=== PATIENT | male | born 1940 | race African-American/Black ===

== ENCOUNTER 2019-01-08 05:53 | Observation (INO) ==
[2019-01-08] MEDS ORDERED: Metoprolol Tartrate 25 MG Tablet PO ONE (06:26)
[2019-01-08] MEDS ORDERED: Chlorhexidine Gluconate 2% 1 Pack (2 Cloths) TOPICAL ONE (06:26)
[2019-01-08] MEDS ORDERED: Heparin 10,000 UNITS/10 ML Vial (for IV use) ONE (06:31)
[2019-01-08] MEDS ORDERED: Protamine Sulfate Inj 50 MG/5 ML Vial ONE (06:31)
[2019-01-08] MEDS ORDERED: Heparin/NS PF Inj 500 ML ONE (06:32)
[2019-01-08] MEDS ORDERED: Thrombin Topical Soln 20,000 UNIT Vial TOPICAL ONE (06:32)
[2019-01-08] MEDS ORDERED: Bupivacaine PF 0.5% Inj 10 ML Vial ONE (06:32)
[2019-01-08] MEDS ORDERED: Heparin 2,000 UNITS/2 ML Vial (for IV use) IV.FLUSH PRN (06:46)
[2019-01-08] MEDS ORDERED: Sodium Chlor 0.9% Inj 500 ML IV.SIG SCH (07:00)
--- NOTE | 2019-01-08 07:08 | P.HPVS ---
History of Present Illness Chief Complaint: ESRD, need for HD access History of Present Illness: 78 yo male with ESRD on HD TTS via R chest catheter. Had R BB AVF placed on that is mature by exam and ultrasound. Presents for planned second stage. No changes in health that would preclude OR - Inpatient Certification If this patient has been admitted as an Inpatient: I certify that the inpatient services were ordered in accordance with Medicare regulations governing the order. This includes certification that hospital inpatient services are reasonable and necessary and in the case of services not specified as inpatient-only under 42 CFR 419.22(n), that they are appropriately provided as inpatient services in accordance to with the 2-midnight benchmark under 43 CFR 412.3(e) Estimated Total Length of Stay (Days): 2 Plans for Post Hospital Care: Home Review of Systems All other systems reviewed negative except as stated in HPI Constitutional: Reports chills PMFSH - History History Provided By: Patient - Medical History Medical History: Medical History (Last Reviewed 01/08/19 @ 07:06 by Giovany Lynne MD) AV fistula COPD (chronic obstructive pulmonary disease) Eye disease GERD (gastroesophageal reflux disease) HTN (hypertension) High cholesterol PAD (peripheral artery disease) Poor historian Prostate enlargement Vascular dialysis catheter in place Wears glasses Wheelchair bound - Surgical History Surgical History: Surgical History (Last Reviewed 01/08/19 @ 07:06 by Giovany Lynne MD) Hx of abdominal surgery Hx of vascular surgery S/P BKA (below knee amputation) bilateral - Tobacco History Second Hand Smoke Exposure: No Tobacco Use In Past 30 Days: No Smoking Status: Former smoker Tobacco Type: Cigarettes - Alcohol History How Often Do You Have a Drink Containing Alcohol: Never - Substance Use History Substance History: No History of Abuse Medications and Allergies Active Medications: Active Medications Heparin Sodium (Porcine) (Heparin Inj) 0 units IV.FLUSH WITH DIALYSIS PRN PRN Reason: Flush each lumen Sodium Chloride (Ns Inj) 500 mls @ 30 mls/hr IV.SIG .Q10H ISIDRO Lactated Ringer's (Lr 1000 Ml Inj) 1,000 mls @ 30 mls/hr IV.SIG .Q24H ISIDRO Stop: 01/09/19 06:29 Sodium Chloride (Ns Flush) 0 ml IV.FLUSH PRN PRN PRN Reason: FLUSH AFTER USING IV ACCESS Allergies Allergy/AdvReac Type Severity Reaction Status Date / Time No Known Allergies Allergy Verified 01/08/19 06:58 Home Medications Medication Instructions Recorded Confirmed Type amlodipine 10 mg PO DAILY 08/14/18 01/07/19 History calcium carbonate-vitamin D3 1 tab PO DAILY 08/14/18 01/07/19 History [Os-Saturnino 500 + D3] folic acid 1 mg PO HS 08/14/18 01/07/19 History metoprolol tartrate 12.5 mg PO BID 08/14/18 01/07/19 History pantoprazole 40 mg PO DAILY 08/14/18 01/07/19 History albuterol sulfate 2.5 mg INHALATION Q4H PRN 09/02/18 01/07/19 History atorvastatin 80 mg PO HS 09/02/18 01/07/19 History ferrous sulfate [Iron (ferrous 325 mg PO DAILY 09/02/18 01/07/19 History sulfate)] fluticasone-salmeterol [Advair 1 puff INHALATION BID 09/02/18 01/07/19 History Diskus] polymyxin B sulf-trimethoprim 1 drp EACH EYE DAILY PRN 09/02/18 01/07/19 History Physical Exam Neuro: alert, no distress HEENT: NC/AT Neck: no JVD Heart: reg rate Lungs: clear B Vascular: R UE incision c/d/i + thrill hand ok. L UE less edematous and incision ok pending Caprini VTE Risk Assessment Caprini VTE Risk Assessment: No/Low Risk (score <= 1) (intraop heparin) Caprini Risk Assessment Model: Point Value = 1 Point Value = 2 Point Value = 3 Point Value = 5 Age 41-60 Minor surgery BMI > 25 kg/m2 Swollen legs Varicose veins or History of unexplained or recurrent spontaneous Oral contraceptives or hormone replacement Sepsis (< 1 month) Serious lung disease, including pneumonia (< 1 month) Abnormal pulmonary function Acute myocardial infarction Congestive heart failure (< 1 month) History of inflammatory bowel disease Medical patient at bed rest Age 61-74 Arthroscopic surgery Major open surgery (> 45 min) Laparoscopic surgery (> 45 min) Malignancy Confined to bed (> 72 hours) Immobilizing plaster cast Central venous access Age >= 75 History of VTE Family history of VTE Factor V Leiden Prothrombin [id number] Lupus anticoagulant Anticardiolipin antibodies Elevated serum homocysteine Heparin-induced thrombocytopenia Other congenital or acquired thrombophilia Stroke (< 1 month) Elective arthroplasty Hip, pelvis, or leg fracture Acute spinal cord injury (< 1 month) Prophylaxis Regimen: Total Risk Factor Score Risk Level Prophylaxis Regimen 0-1 Low Early ambulation 2 Moderate Order ONE of the following: *Sequential Compression Device (SCD) *Heparin 5000 units SQ BID 3-4 Higher Order ONE of the following medications: *Heparin 5000 units SQ TID *Enoxaparin/Lovenox 40 mg SQ daily (WT < 150 kg, CrCl > 30 mL/min) *Enoxaparin/Lovenox 30 mg SQ daily (WT < 150 kg, CrCl > 10-29 mL/min) *Enoxaparin/Lovenox 30 mg SQ BID (WT < 150 kg, CrCl > 30 mL/min) AND/OR *Sequential Compression Device (SCD) 5 or more Highest Order ONE of the following medications: *Heparin 5000 units SQ TID (Preferred with Epidurals) *Enoxaparin/Lovenox 40 mg SQ daily (WT < 150 kg, CrCl > 30 mL/min) *Enoxaparin/Lovenox 30 mg SQ daily (WT < 150 kg, CrCl > 10-29 mL/min) *Enoxaparin/Lovenox 30 mg SQ BID (WT < 150 kg, CrCl > 30 mL/min) AND *Sequential Compression Device (SCD) Assessment and Plan - Assessment (1) ESRD (end stage renal disease) on dialysis Code(s): N18.6 - End stage renal disease; Z99.2 - Dependence on renal dialysis Status: Acute - Plan RIGHT arm BB AVF, ready for second stage. To OR. Operative site marked. PACU and CPCU post-op : [phone]
[2019-01-08 07:20] LABS: Baso % (Auto) 0.6 % (0.0-2.0); Eos # (Auto) 0.3 th/mm3 (0.0-0.4); Eos % (Auto) 4.9 % (0.0-4.0); Hemoglobin 10.6 gm/dL (13.0-17.0); Lymph # (Auto) 1.3 th/mm3 (1.0-4.8); Lymph % (Auto) 21.9 % (9.0-44.0); Mean Corpuscular HGB Conc 33.1 % (32.0-36.0); Mean Corpuscular Hemoglobin 31.2 pg (27.0-34.0); Mean Corpuscular Volume 94.3 fL (80.0-100.0); Mean Platelet Volume 9.1 fL (7.0-11.0); Mono # (Auto) 0.7 th/mm3 (0.0-0.9); Neut # (Auto) 3.7 th/mm3 (1.8-7.7); Neut % (Auto) 60.6 % (16.0-70.0); Platelet Count 151 th/mm3 (150-450); Red Cell Distribution Width 17.2 % (11.6-17.2); White Blood Count 6.1 th/mm3 (4.0-11.0)
[2019-01-08 07:26] LABS: Activated Partial Thrombo Time 29.9 sec (23.4-31.7); INR 1.1 Ratio; Prothrombin Time 11.5 sec (9.8-11.6)
[2019-01-08] MEDS ORDERED: Famotidine PF Inj 20 MG/2 ML Vial ONE (07:30)
[2019-01-08 07:31] LABS: Calcium 7.8 mg/dL (8.5-10.1); Carbon Dioxide 31.1 meq/L (21.0-32.0); Potassium 4.4 meq/L (3.5-5.1)
[2019-01-08] MEDS ORDERED: Phenylephrine/NS 1000 MCG/10ML Syringe IV.PUSH ONE (07:45)
[2019-01-08] MEDS ORDERED: Sodium Chlor 0.9% Inj 250 ML IV.CONT ONE (07:45)
[2019-01-08] MEDS ORDERED: Lidocaine PF 1% Inj 5 ML Syringe OTHER ONE (07:45)
[2019-01-08] MEDS ORDERED: Glycopyrrolate Inj 1 MG/5 ML Syringe IV.PUSH ONE (07:45)
[2019-01-08] MEDS ORDERED: Bisacodyl 10 MG Supp RECTAL PRN (09:17)
--- NOTE | 2019-01-08 09:17 | P.OP ---
- Preoperative Diagnosis (1) ESRD (end stage renal disease) on dialysis - Postoperative Diagnosis (1) ESRD (end stage renal disease) on dialysis Date of procedure: 01/08/19 Procedure: R UE access revision (transposition of brachiobasilic AVF) Implants: none Anesthesia: GETA Surgeon: Giovany Lynne MD Drencher: Giovany Enriquez Estimated blood loss (mL): 25 IV fluids (mL): 550 Pathology: none sent Operation and Findings: decent sized vein + thrill after AVF + Doppler signals in wrist
[2019-01-08] MEDS ORDERED: Polymyxin/Trimethop Opth Drops 10 ML Bottle EACH EYE PRN (09:20)
[2019-01-08] MEDS ORDERED: fentaNYL Citrate Inj 100 MCG/2 ML Ampul ONE (10:07)
--- NOTE | 2019-01-08 11:02 | MP ---
cc: Giovany Lynne MD DATE OF OPERATION: 01/08/2019 PREOPERATIVE DIAGNOSIS: Endstage renal disease, need for dialysis access. POSTOPERATIVE DIAGNOSIS: Endstage renal disease, need for dialysis access. PROCEDURE PERFORMED: Right brachiobasilic arteriovenous fistula transposition. ATTENDING SURGEON: Giovany Lynne MD. ANESTHESIA: LMA. MEDICAL INSURANCE COLLECTOR SURGEON: Giovany Enriquez. INDICATIONS FOR PROCEDURE: Mr. Finnegan is an 78-year-old gentleman with bilateral below-knee amputations and a failed left arm access. He had a right first stage brachiobasilic fistula on 11/06 and is brought to the operating room for a planned second stage. Intraoperatively, it was found the vein to be marginal, but had a reasonable thrill. DESCRIPTION OF PROCEDURE: Informed consent was obtained from the patient, he was taken to the operating room and placed supine on the operating table. Appropriate timeout was taken to ensure the patient's identity, operative site, and planned procedure. The administration of 1 gram of vancomycin was initiated prior to skin incision and will be discontinued after single preoperative dose. Vancomycin was chosen because of the patient's end-stage renal disease. Everyone in the room agreed with the timeout and we proceeded. His right arm was prepped and draped. Incision made along the medial aspect of the upper arm, carried down through subcutaneous tissue with electrocautery. Basilic vein was identified, dissected free, and side branches were ligated with 3-0 silk. The vein was marked for orientation and clamped distally. The distal end was transected and oversewn with 3-0 silk. The vein was then transposed, taking caution not to twist it. The brachial artery was identified on the medial aspect of the incision, dissected free for several centimeters. The patient was systemically heparinized with 3000 units of IV heparin. Proximal and distal control of the brachial artery obtained with profunda clamps and a longitudinal arteriotomy was made with an 11 blade, extended with [place] scissors. The vein was cut to appropriate length, spatulated, and sewn end-to-side with running 6-0 Prolene suture. At the completion, it was flushed and noted to be hemostatic. There was a nice thrill in the fistula and Doppler signal in the wrist. The heparin was reversed with protamine. The wound was closed with 2-0 Polysorb, 3-0 Polysorb, and 4-0 Monocryl. Sponge and needle counts were correct at the end of the case. I was present and scrubbed for the entire procedure. MD JIM Matson/lorraine/trudi , 09:38 AM , 09:45 AM [email or web address]
[2019-01-08] MEDS ORDERED: Glycopyrrolate 0.2 MG/ML Vial ONE (11:25)
[2019-01-08] MEDS ORDERED: Sod Chloride 0.9% Inj 1,000 ML OTHER PRN ×2 (15:15)
[2019-01-08] MEDS ORDERED: Albumin Human 25% Inj 100 ML IV.SIG PRN (15:15)
[2019-01-08] MEDS ORDERED: Acetaminophen 325 MG Tablet PO PRN (15:15)
[2019-01-08] MEDS ORDERED: Gelatin 12 MM/7 MM Topical Foam TOPICAL PRN (15:15)
[2019-01-08] MEDS ORDERED: Heparin 10,000 UNITS/10 ML Vial (for IV use) OTHER PRN ×2 (15:15)
[2019-01-08] MEDS ORDERED: Sod Chloride 0.9% Inj 1,000 ML IV.CONT PRN (15:15)
--- NOTE | 2019-01-08 15:28 | P.CONNP ---
<Pollo Berger - Last Filed: 01/08/19 15:28> History of Present Illness Reason for Consult: ESRD on HD Primary Care Provider: No Primary Care Physician History of Present Illness: Patient is an 78 year old male who came to [facility] for a right upper extremity access revision with Dr. Lynne. Patient had a right upper extremity fistula placed (1st stage) with Dr. Lynne on 11/06/18. Patient had a failed left upper extremity access that was done 08/14/2018. Patient has a PMH of ESRD on dialysis, COPD, HTN, PAD, s/p bilateral BKA. Patient stated he normally gets dialyzed TTS at [facility] in [place]. Patient denied any complaints. Patient is a former tobacco smoker. Review of Systems All other systems reviewed negative except as stated in HPI [facility] - History History Provided By: Patient - Medical History Medical History: Medical History (Last Reviewed 01/08/19 @ 07:06 by Giovany Lynne MD) AV fistula COPD (chronic obstructive pulmonary disease) Eye disease GERD (gastroesophageal reflux disease) HTN (hypertension) High cholesterol PAD (peripheral artery disease) Poor historian Prostate enlargement Vascular dialysis catheter in place Wears glasses Wheelchair bound - Surgical History Surgical History: Surgical History (Last Reviewed 01/08/19 @ 07:06 by Giovany Lynne MD) Hx of abdominal surgery Hx of vascular surgery S/P BKA (below knee amputation) bilateral - Tobacco History Second Hand Smoke Exposure: No Tobacco Use In Past 30 Days: No Smoking Status: Former smoker Tobacco Type: Cigarettes - Alcohol History How Often Do You Have a Drink Containing Alcohol: Never - Substance Use History Substance History: No History of Abuse - Travel History Recent Travel in the [place] Within the Last 8 Weeks: No Recent Travel Out of the Country Within the Last 8 Weeks: No Medications and Allergies Allergies Allergy/AdvReac Type Severity Reaction Status Date / Time No Known Allergies Allergy Verified 01/08/19 06:58 Home Medications Medication Instructions Recorded Confirmed Type amlodipine 10 mg PO DAILY 08/14/18 01/08/19 History calcium carbonate-vitamin D3 1 tab PO DAILY 08/14/18 01/08/19 History [Os-Saturnino 500 + D3] folic acid 1 mg PO HS 08/14/18 01/08/19 History metoprolol tartrate 12.5 mg PO BID 08/14/18 01/08/19 History pantoprazole 40 mg PO DAILY 08/14/18 01/08/19 History albuterol sulfate 2.5 mg INHALATION Q4H PRN 09/02/18 01/08/19 History atorvastatin 80 mg PO HS 09/02/18 01/08/19 History ferrous sulfate [Iron (ferrous 325 mg PO DAILY 09/02/18 01/08/19 History sulfate)] fluticasone-salmeterol [Advair 1 puff INHALATION BID 09/02/18 01/08/19 History Diskus] polymyxin B sulf-trimethoprim 1 drp EACH EYE DAILY PRN 09/02/18 01/08/19 History Active Medications: Active Medications Acetaminophen (Tylenol) 650 mg PO UNSCH PRN PRN Reason: SEE LABEL COMMENTS Albuterol (Albuterol Neb (Prn)) 2.5 mg INH Q4HR NEB PRN PRN Reason: SHORTNESS OF BREATH/WHEEZING Amlodipine Besylate (Norvasc) 10 mg PO DAILY ISIDRO Atorvastatin Calcium (Lipitor) 80 mg PO HS ISIDRO Bisacodyl (Dulcolax Supp) 10 mg RECTAL DAILY PRN PRN Reason: SEVERE CONSITIPATION Budesonide/Formoterol Fumarate (Symbicort 80/4.5 Mcg Inh) 2 puff INH BID ISIDRO Calcium/Vitamin D (Oscal With D 250/125 Mg) 2 tab PO DAILY ISIDRO Clonidine HCl (Catapres) 0.1 mg PO UNSCH PRN PRN Reason: SEE LABEL COMMENTS Diphenhydramine HCl (Benadryl) 25 mg PO UNSCH PRN PRN Reason: SEE LABEL COMMENTS Epoetin Gt (Epogen Inj) 10,000 unit IV.PUSH UNSCH PRN PRN Reason: SEE LABEL COMMENTS Ferrous Sulfate (Ferosul) 325 mg PO DAILY ISIDRO Folic Acid (Folic Acid) 1 mg PO HS ISIDRO Gelatin (Gelfoam 12 Mm/7 Mm Topical) 1 foam TOPICAL PRN PRN PRN Reason: help stop bleeding from site Gentamicin Sulfate (Gentamicin Inj) 20 mg OTHER WITH DIALYSIS PRN PRN Reason: Dwell Gentamycin Lock Heparin Sodium (Porcine) (Heparin Inj) 0 units IV.FLUSH WITH DIALYSIS PRN PRN Reason: Flush each lumen Last Admin: 01/08/19 10:50 Dose: 1,800 units Heparin Sodium (Porcine) (Heparin Inj) 5,000 units SQ Q8H ISIDRO Heparin Sodium (Porcine) (Heparin Inj) 8,000 units OTHER WITH DIALYSIS PRN PRN Reason: for machine prime Heparin Sodium (Porcine) (Heparin Inj) 1,000 units OTHER WITH DIALYSIS PRN PRN Reason: Dwell Heparin to Fill Catheter Hydromorphone HCl (Dilaudid) 2 mg PO Q4H PRN PRN Reason: PAIN SCALE 6 TO 10 Lactated Ringer's (Lr 1000 Ml Inj) 1,000 mls @ 30 mls/hr IV.SIG .Q24H [facility] Stop: 01/09/19 06:29 Albumin Human (Flexbumin 25% Inj) 100 mls @ 60 mls/hr IV.SIG WITH DIALYSIS PRN PRN Reason: hypotension / volume replace Sodium Chloride (Ns Inj) 1,000 mls @ 0 mls/hr OTHER .Q0M PRN PRN Reason: for prime and rinse back Sodium Chloride (Ns Inj) 1,000 mls @ 200 mls/hr OTHER .Q5H PRN PRN Reason: for dialyzer flush PRN Sodium Chloride (Ns Inj) 1,000 mls @ 0 mls/hr IV.CONT .Q0M PRN PRN Reason: hypotension / volume replace Lactulose (Lactulose Liq) 30 ml PO DAILY PRN PRN Reason: SEVERE CONSITIPATION Mannitol (Mannitol Inj) 12.5 gm IV.PUSH UNSCH PRN PRN Reason: hypotension / volume replace Metoprolol Tartrate (Lopressor) 12.5 mg PO BID [facility] Miscellaneous Information (Misc Nursing Information) 0 each OTHER UNSCH PRN PRN Reason: SEE LABEL COMMENTS Stop: 01/09/19 09:55 Nitroglycerin (Nitrostat Sl) 0.4 mg SL Q5M PRN PRN Reason: CHEST PAIN Ondansetron HCl (Zofran Inj) 4 mg IV.PUSH UNSCH PRN PRN Reason: NAUSEA OR VOMITING Oxycodone HCl (Roxicodone) 5 mg PO Q4H PRN PRN Reason: PAIN SCALE 1 TO 5 Pantoprazole Sodium (Protonix) 40 mg PO DAILY [facility] Polymyxin/Trimethoprim Sulfate (Polytrim Opth Drops) 1 drop EACH EYE DAILY PRN PRN Reason: Irritation Senna/Docusate Sodium (Tomasa-Colace) 1 tab PO BID [facility] Sennosides (Senokot) 17.2 mg PO Q12H PRN PRN Reason: Moderate Constipation Sodium Chloride (Ns Flush) 0 ml IV.FLUSH PRN PRN PRN Reason: FLUSH AFTER USING IV ACCESS Sodium Chloride (Ns Flush) 5 ml IV.FLUSH PRN PRN PRN Reason: flush each lumen during HD Exam Vital signs: Vital Signs 01/08/19 07:30 01/08/19 09:54 01/08/19 12:00 Temperature 98.6 F 97.4 F L Pulse Rate 56 L 64 73 Respiratory Rate 22 18 Blood Pressure 138/34 L 109/54 L Pulse Oximetry 95 93 L 01/08/19 13:00 01/08/19 13:28 Temperature 97.7 F Pulse Rate 68 74 Respiratory Rate 18 Blood Pressure 122/63 Pulse Oximetry 97 Intake & Output 01/07/19 01/08/19 01/08/19 18:59 06:59 18:59 Intake Total 550 / 550 Output Total 25 / Balance 525 / 525 Weight 74.5 kg Intake: Oral 0 / 0 Anesthesia Amount 550 / 550 Output: Urine 0 / 0 Estimated Blood Loss 25 / 25 Other: Weight On Admission 74.5 kg - Constitutional no acute distress - Routine HEENT Exam Head: Present: normocephalic Eye: Present: EOMI ENT: Present: mucous membranes moist - Routine Neck Exam Present: trachea midline. Absent: tracheal deviation - Routine Respiratory Exam Absent: accessory muscle use, respiratory distress - Routine Cardiovascular Exam Present: RRR - Routine Abdominal Exam Present: soft. Absent: tenderness - Routine Extremities Exam Present: amputation, AV fistula Comments: Bilateral BKA. Results - Lab Results 01/08/19 06:55 01/08/19 06:55 Most recent lab results Calcium 7.8 mg/dL (8.5-10.1) L 01/08/19 06:55 Assessment and Plan - Assessment (1) ESRD (end stage renal disease) on dialysis Code(s): N18.6 - End stage renal disease; Z99.2 - Dependence on renal dialysis Status: Acute Plan: Patient gets dialysis TTS in [place]. Plan is for patient to get dialysis tomorrow and then discharged after. Orders have been placed. Patient has PermCath in place for HD. s/p right upper extremity access revision. Avoid BP measurements or IV's in right arm due to AVF. Avoid nephrotoxic agents. (2) Hypertension Code(s): I10 - Essential (primary) hypertension Status: Acute Plan: Patient on Amlodipine and Metoprolol. Monitor BP. <Naman Jacobo - Last Filed: 01/09/19 14:22> History of Present Illness Primary Care Provider: No Primary Care Physician [facility] - Medical History Medical History: Medical History (Last Reviewed 01/08/19 @ 07:06 by Giovany Lynne MD) AV fistula COPD (chronic obstructive pulmonary disease) Eye disease GERD (gastroesophageal reflux disease) HTN (hypertension) High cholesterol PAD (peripheral artery disease) Poor historian Prostate enlargement Vascular dialysis catheter in place Wears glasses Wheelchair bound - Surgical History Surgical History: Surgical History (Last Reviewed 01/08/19 @ 07:06 by Giovany Lynne MD) Hx of abdominal surgery Hx of vascular surgery S/P BKA (below knee amputation) bilateral Medications and Allergies Active Medications: Active Medications Acetaminophen (Tylenol) 650 mg PO UNSCH X1 PRN PRN Reason: SEE LABEL COMMENTS Albuterol (Albuterol Neb (Prn)) 2.5 mg INH Q4HR NEB PRN PRN Reason: SHORTNESS OF BREATH/WHEEZING Amlodipine Besylate (Norvasc) 10 mg PO DAILY [facility] Last Admin: 01/09/19 11:55 Dose: Not Given Atorvastatin Calcium (Lipitor) 80 mg PO HS [facility] Last Admin: 01/09/19 01:41 Dose: Not Given Bisacodyl (Dulcolax Supp) 10 mg RECTAL DAILY PRN PRN Reason: SEVERE CONSITIPATION Budesonide/Formoterol Fumarate (Symbicort 80/4.5 Mcg Inh) 2 puff INH BID [facility] Last Admin: 01/09/19 11:55 Dose: Not Given Calcium/Vitamin D (Oscal With D 250/125 Mg) 2 tab PO DAILY [facility] Last Admin: 01/09/19 13:29 Dose: 2 tab Clonidine HCl (Catapres) 0.1 mg PO UNSCH X1 PRN PRN Reason: SEE LABEL COMMENTS Diphenhydramine HCl (Benadryl) 25 mg PO UNSCH PRN PRN Reason: SEE LABEL COMMENTS Epoetin Gt (Epogen Inj) 10,000 unit IV.PUSH UNSCH PRN PRN Reason: SEE LABEL COMMENTS Last Admin: 01/09/19 11:38 Dose: 10,000 unit Ferrous Sulfate (Ferosul) 325 mg PO DAILY [facility] Last Admin: 01/09/19 13:29 Dose: 325 mg Folic Acid (Folic Acid) 1 mg PO HS [facility] Last Admin: 01/09/19 01:41 Dose: Not Given Gelatin (Gelfoam 12 Mm/7 Mm Topical) 1 foam TOPICAL UNSCH PRN PRN Reason: help stop bleeding from site Gentamicin Sulfate (Gentamicin Inj) 20 mg OTHER WITH DIALYSIS PRN PRN Reason: Dwell Gentamycin Lock Last Admin: 01/09/19 12:38 Dose: 20 mg Heparin Sodium (Porcine) (Heparin Inj) 0 units IV.FLUSH WITH DIALYSIS PRN PRN Reason: Flush each lumen Last Admin: 01/08/19 10:50 Dose: 1,800 units Heparin Sodium (Porcine) (Heparin Inj) 5,000 units SQ Q8H [facility] Last Admin: 01/09/19 11:55 Dose: Not Given Heparin Sodium (Porcine) (Heparin Inj) 8,000 units OTHER WITH DIALYSIS PRN PRN Reason: for machine prime Heparin Sodium (Porcine) (Heparin Inj) 0 units OTHER WITH DIALYSIS PRN PRN Reason: Dwell Heparin to Fill Catheter Last Admin: 01/09/19 12:38 Dose: 1,000 units Hydromorphone HCl (Dilaudid) 2 mg PO Q4H PRN PRN Reason: PAIN SCALE 6 TO 10 Last Admin: 01/08/19 17:29 Dose: 2 mg Albumin Human (Flexbumin 25% Inj) 100 mls @ 60 mls/hr IV.SIG WITH DIALYSIS PRN PRN Reason: hypotension / volume replace Sodium Chloride (Ns Inj) 1,000 mls @ 0 mls/hr OTHER .Q0M PRN PRN Reason: for prime and rinse back Sodium Chloride (Ns Inj) 1,000 mls @ 200 mls/hr OTHER .Q5H PRN PRN Reason: for dialyzer flush PRN Sodium Chloride (Ns Inj) 1,000 mls @ 0 mls/hr IV.CONT .Q0M PRN PRN Reason: hypotension / volume replace Lactulose (Lactulose Liq) 30 ml PO DAILY PRN PRN Reason: SEVERE CONSITIPATION Mannitol (Mannitol Inj) 12.5 gm IV.PUSH UNSCH PRN PRN Reason: hypotension / volume replace Metoprolol Tartrate (Lopressor) 12.5 mg PO BID [facility] Last Admin: 01/09/19 11:54 Dose: Not Given Nitroglycerin (Nitrostat Sl) 0.4 mg SL Q5M PRN PRN Reason: CHEST PAIN Ondansetron HCl (Zofran Inj) 4 mg IV.PUSH UNSCH X1 PRN PRN Reason: NAUSEA OR VOMITING Oxycodone HCl (Roxicodone) 5 mg PO Q4H PRN PRN Reason: PAIN SCALE 1 TO 5 Pantoprazole Sodium (Protonix) 40 mg PO DAILY [facility] Last Admin: 01/09/19 13:29 Dose: 40 mg Polymyxin/Trimethoprim Sulfate (Polytrim Opth Drops) 1 drop EACH EYE DAILY PRN PRN Reason: Irritation Senna/Docusate Sodium (Tomasa-Colace) 1 tab PO BID [facility] Last Admin: 01/09/19 13:29 Dose: 1 tab Sennosides (Senokot) 17.2 mg PO Q12H PRN PRN Reason: Moderate Constipation Sodium Chloride (Ns Flush) 0 ml IV.FLUSH PRN PRN PRN Reason: FLUSH AFTER USING IV ACCESS Sodium Chloride (Ns Flush) 5 ml IV.FLUSH UNSCH PRN PRN Reason: flush each lumen during HD Exam Vital signs: Vital Signs 01/08/19 15:00 01/08/19 16:00 01/08/19 19:00 Temperature 97.8 F Pulse Rate 60 56 L 59 L Respiratory Rate 18 Blood Pressure 104/56 L Pulse Oximetry 100 01/08/19 20:00 01/08/19 21:00 01/08/19 22:00 Temperature 98.5 F Pulse Rate 58 L 64 56 L Respiratory Rate 16 Blood Pressure 125/61 Pulse Oximetry 97 01/08/19 23:00 01/09/19 00:00 01/09/19 01:00 Temperature 97.8 F Pulse Rate 79 58 L 50 L Respiratory Rate 16 Blood Pressure 109/49 L Pulse Oximetry 97 01/09/19 02:00 01/09/19 03:00 01/09/19 03:27 Temperature 98.2 F Pulse Rate 56 L 56 L 55 L Respiratory Rate 16 Blood Pressure 111/53 L Pulse Oximetry 99 01/09/19 04:00 01/09/19 05:00 01/09/19 06:00 Temperature Pulse Rate 58 L 54 L 58 L Respiratory Rate Blood Pressure Pulse Oximetry 01/09/19 07:00 01/09/19 07:47 01/09/19 08:00 Temperature 97.8 F Pulse Rate 56 L 66 Respiratory Rate 16 Blood Pressure 94/41 L Pulse Oximetry 97 95 01/09/19 09:00 01/09/19 10:16 01/09/19 13:00 Temperature Pulse Rate 64 42 L 49 L Respiratory Rate Blood Pressure Pulse Oximetry 01/09/19 13:24 01/09/19 14:00 Temperature 97.7 F Pulse Rate 50 L 52 L Respiratory Rate 16 Blood Pressure 89/42 L Pulse Oximetry 99 Intake & Output 01/08/19 01/09/19 01/09/19 18:59 06:59 18:59 Intake Total 1030 / 1030 240 / 240 Output Total 25 / 25 0 / 0 1500 / 1500 Balance 1005 / 1005 240 / 240 -1500 / -1500 Weight 74.5 kg 79 kg Intake: Oral 480 / 480 240 / 240 Anesthesia Amount 550 / 550 Output: Urine 0 / 0 0 / 0 Hemodialysis Amount 1500 / 1500 Estimated Blood Loss 25 / 25 Other: Weight On Admission 74.5 kg Results - Lab Results 01/09/19 09:30 01/09/19 09:30 Most recent lab results Calcium 7.9 mg/dL (8.5-10.1) L 01/09/19 09:30 Assessment and Plan - Assessment (1) ESRD (end stage renal disease) on dialysis Code(s): N18.6 - End stage renal disease; Z99.2 - Dependence on renal dialysis Status: Acute (2) Hypertension Code(s): I10 - Essential (primary) hypertension Status: Acute - Attending Attestation patient was seen and examined on the . Agree with above assessment and plan.
[2019-01-08] MEDS: Budesonide-Formoterol 80/4.5 MCG 6.9 GM Inhaler INH SCH (19:45)
[2019-01-08] MEDS: Metoprolol Tartrate 25 MG Tablet PO SCH (19:46)
[2019-01-08] MEDS: Senna/Docusate Sodium 8.6/50 MG Tablet PO SCH (19:46)
[2019-01-08] MEDS: Folic Acid 1 MG Tablet PO SCH (19:48)
[2019-01-09] MEDS: Senna/Docusate Sodium 8.6/50 MG Tablet PO SCH ×2 (01:41→13:29)
[2019-01-09] MEDS: Metoprolol Tartrate 25 MG Tablet PO SCH ×2 (01:41→11:54)
[2019-01-09] MEDS: Folic Acid 1 MG Tablet PO SCH (01:41)
[2019-01-09] MEDS: Budesonide-Formoterol 80/4.5 MCG 6.9 GM Inhaler INH SCH ×2 (01:42→11:55)
--- NOTE | 2019-01-09 08:28 | P.PNVS ---
Subjective Post Op Day #: 1 Procedure: R UE Access revision (transposition) Subjective/Hospital Course: looks great, eating breakfast, pain controlled awaiting HD Objective Vital Signs / I&O: Vital Signs 01/08/19 09:54 01/08/19 10:00 01/08/19 10:15 Temperature 97.4 F L Pulse Rate 64 65 57 L Respiratory Rate 18 17 14 Blood Pressure 109/54 L 110/56 L 109/57 L Pulse Oximetry 93 L 92 L 93 L 01/08/19 10:30 01/08/19 10:45 01/08/19 11:00 Temperature Pulse Rate 66 53 L 50 L Respiratory Rate 20 14 14 Blood Pressure 118/65 115/61 115/60 Pulse Oximetry 93 L 93 L 93 L 01/08/19 11:15 01/08/19 11:30 01/08/19 12:00 Temperature 97.4 F L Pulse Rate 48 L 62 73 Respiratory Rate 14 14 Blood Pressure 105/55 L 105/59 L Pulse Oximetry 93 L 93 L 01/08/19 13:00 01/08/19 13:28 01/08/19 14:00 Temperature 97.7 F Pulse Rate 68 74 68 Respiratory Rate 18 Blood Pressure 122/63 Pulse Oximetry 97 01/08/19 15:00 01/08/19 16:00 01/08/19 19:00 Temperature 97.8 F Pulse Rate 60 56 L 59 L Respiratory Rate 18 Blood Pressure 104/56 L Pulse Oximetry 100 01/08/19 20:00 01/08/19 21:00 01/08/19 22:00 Temperature 98.5 F Pulse Rate 58 L 64 56 L Respiratory Rate 16 Blood Pressure 125/61 Pulse Oximetry 97 01/08/19 23:00 01/09/19 00:00 01/09/19 01:00 Temperature 97.8 F Pulse Rate 79 58 L 50 L Respiratory Rate 16 Blood Pressure 109/49 L Pulse Oximetry 97 01/09/19 02:00 01/09/19 03:00 01/09/19 03:27 Temperature 98.2 F Pulse Rate 56 L 56 L 55 L Respiratory Rate 16 Blood Pressure 111/53 L Pulse Oximetry 99 01/09/19 04:00 01/09/19 05:00 01/09/19 06:00 Temperature Pulse Rate 58 L 54 L 58 L Respiratory Rate Blood Pressure Pulse Oximetry 01/09/19 07:47 Temperature Pulse Rate Respiratory Rate Blood Pressure Pulse Oximetry 97 Intake & Output 01/08/19 01/09/19 01/09/19 18:59 06:59 18:59 Intake Total 1030 / 1030 240 / 240 Output Total 0 / 0 Balance 1005 / 1005 240 / 240 Weight 74.5 kg 79 kg Intake: Oral 480 / 480 240 / 240 Anesthesia Amount 550 / 550 Output: Urine 0 / 0 0 / 0 Estimated Blood Loss Other: Weight On Admission 74.5 kg Exam: no distress R UE incision ok + thrill Assessment and Plan - Assessment (1) ESRD (end stage renal disease) on dialysis Code(s): N18.6 - End stage renal disease; Z99.2 - Dependence on renal dialysis Status: Acute - Plan POD#1 s/p R UE access revision; + thrill 1. HD today 2. D/C after HD
--- NOTE | 2019-01-09 08:31 | P.DS ---
Discharge Summary - Admission Date 01/08/19 09:17 - Admission Diagnosis (1) ESRD (end stage renal disease) on dialysis - Discharge Diagnosis (1) ESRD (end stage renal disease) on dialysis Status: Acute - Summary Brief History from admission: 78 yo male with ESRD on HD TTS via R chest catheter. Had R BB AVF placed on that is mature by exam and ultrasound. Presents for planned second stage. No changes in health that would preclude OR Procedure: R UE Access revision (transposition) Significant Findings: decent vein Hospital Course: The patient tolerated the procedure well. On POD#1 he was tolerating a diet and will be discharged after HD. PDMP queried and no narcotic prescriptions in >6 m, so N=18 oxycodone 5m were prescribed for acute post-surgical pain <3 days - Discharge Instructions Any questions or concerns: Call [facility] [phone] Discharge Plan - Discharge Disposition Patient Disposition: 01 Discharge Home - Discharge Condition Condition: Good - Discharge Order Discharge Orders: Discharge Order (Routine); Ordered 01/09/19 Ordered By: Giovany Lynne - Physicians Team Primary Care Provider: Primary Care Lisa Lopez Attending Provider: Giovany Lynne Other Providers: Naman Jacobo MD - Rxs /Orders / Referrals /Forms Prescriptions: Continue albuterol sulfate 2.5 mg /3 mL (0.083 %) Solution For Nebulization 2.5 mg INHALATION Q4H PRN (Reason: Shortness Of Breath Or Wheezing) amlodipine 10 mg Tablet 10 mg PO DAILY atorvastatin 80 mg Tablet 80 mg PO HS calcium carbonate-vitamin D3 [Os-Saturnino 500 + D3] 500mg (1,250mg) -600 unit Tablet 1 tab PO DAILY ferrous sulfate [Iron (ferrous sulfate)] 325 mg (65 mg iron) Tablet 325 mg PO DAILY fluticasone-salmeterol [Advair Diskus] 100-50 mcg/dose Blister With Device 1 puff INHALATION BID folic acid 1 mg Tablet 1 mg PO HS metoprolol tartrate 25 mg Tablet 12.5 mg PO BID pantoprazole 40 mg Tablet,Delayed Release (Dr/Ec) 40 mg PO DAILY polymyxin B sulf-trimethoprim 10,000 unit- 1 mg/mL Drops 1 drp EACH EYE DAILY PRN (Reason: IRRITATION) Referrals: Primary Care Lisa Lopez [Primary Care Provider] - See Instructions Giovany Lynne MD [Physician] - See Instructions (Follow-up appointment 02/07 at 9:45a. )
[2019-01-09] MEDS ORDERED: Calcium/Vitamin D 250/125 MG Tablet PO SCH (09:00)
[2019-01-09] MEDS ORDERED: Ferrous Sulfate 325 MG Tablet PO SCH (09:00)
[2019-01-09] MEDS ORDERED: amLODIPine 10 MG Tablet PO SCH (09:00)
[2019-01-09 09:49] LABS: Hematocrit 30.3 % (39.0-51.0); Hemoglobin 10.2 gm/dL (13.0-17.0); Mean Corpuscular HGB Conc 33.6 % (32.0-36.0); Mean Corpuscular Hemoglobin 31.8 pg (27.0-34.0); Mean Corpuscular Volume 94.5 fL (80.0-100.0); Mean Platelet Volume 9.8 fL (7.0-11.0); Platelet Count 165 th/mm3 (150-450); Red Cell Distribution Width 17.6 % (11.6-17.2); White Blood Count 6.8 th/mm3 (4.0-11.0)
[2019-01-09 10:38] LABS: Calcium 7.9 mg/dL (8.5-10.1); Carbon Dioxide 31.4 meq/L (21.0-32.0); Potassium 5.2 meq/L (3.5-5.1)
[2019-01-09 11:24] LABS: Hepatitis A IgM Antibody Nonreactive (Nonreactive); Hepatitits B Surface Antigen Nonreactive (Nonreactive)
[2019-01-09] MEDS: Heparin - SQ 10,000 UNITS/ML Vial SQ SCH ×2 (11:55→16:29)
--- NOTE | 2019-01-09 12:29 | P.PNNP ---
Subjective Interval history: Patient was seen, no distress. Patient stated he had some shortness of breath this morning but now he has none, was on O2 nasal cannula. Patient was on dialysis, 2K, 300 ml/min, UF goal 1.5 L. Patient to be discharged today after dialysis. <Pollo Berger - Last Filed: 01/09/19 12:25> Physical Exam Vital signs: Vital Signs 01/08/19 13:00 01/08/19 13:28 01/08/19 14:00 Temperature 97.7 F Pulse Rate 68 74 68 Respiratory Rate 18 Blood Pressure 122/63 Pulse Oximetry 97 01/08/19 15:00 01/08/19 16:00 01/08/19 19:00 Temperature 97.8 F Pulse Rate 60 56 L 59 L Respiratory Rate 18 Blood Pressure 104/56 L Pulse Oximetry 100 01/08/19 20:00 01/08/19 21:00 01/08/19 22:00 Temperature 98.5 F Pulse Rate 58 L 64 56 L Respiratory Rate 16 Blood Pressure 125/61 Pulse Oximetry 97 01/08/19 23:00 01/09/19 00:00 01/09/19 01:00 Temperature 97.8 F Pulse Rate 79 58 L 50 L Respiratory Rate 16 Blood Pressure 109/49 L Pulse Oximetry 97 01/09/19 02:00 01/09/19 03:00 01/09/19 03:27 Temperature 98.2 F Pulse Rate 56 L 56 L 55 L Respiratory Rate 16 Blood Pressure 111/53 L Pulse Oximetry 99 01/09/19 04:00 01/09/19 05:00 01/09/19 06:00 Temperature Pulse Rate 58 L 54 L 58 L Respiratory Rate Blood Pressure Pulse Oximetry 01/09/19 07:00 01/09/19 07:47 01/09/19 08:00 Temperature 97.8 F Pulse Rate 56 L 66 Respiratory Rate 16 Blood Pressure 94/41 L Pulse Oximetry 97 95 01/09/19 09:00 01/09/19 10:16 Temperature Pulse Rate 64 42 L Respiratory Rate Blood Pressure Pulse Oximetry Intake & Output 01/08/19 01/09/19 01/09/19 18:59 06:59 18:59 Intake Total 1030 / 1030 240 / 240 Output Total 0 / 0 Balance 1005 / 1005 240 / 240 Weight 74.5 kg 79 kg Intake: Oral 480 / 480 240 / 240 Anesthesia Amount 550 / 550 Output: Urine 0 / 0 0 / 0 Estimated Blood Loss 25 / 25 Other: Weight On Admission 74.5 kg - Constitutional no acute distress - Routine HEENT Exam Head: Present: normocephalic Eye: Present: EOMI ENT: Present: mucous membranes moist - Routine Neck Exam Present: trachea midline. Absent: tracheal deviation - Routine Respiratory Exam Absent: accessory muscle use, respiratory distress - Routine Cardiovascular Exam Present: S1, S2 - Routine Abdominal Exam Present: soft, normoactive bowel sounds - Routine Extremities Exam Present: amputation, AV fistula, vascular access Comments: Bilateral BKA. - Routine Neurological Exam Present: alert - Routine Psychiatric Exam Present: normal affect <Pollo Berger - Last Filed: 01/09/19 12:25> Vital signs: Vital Signs 01/08/19 15:00 01/08/19 16:00 01/08/19 19:00 Temperature 97.8 F Pulse Rate 60 56 L 59 L Respiratory Rate 18 Blood Pressure 104/56 L Pulse Oximetry 100 01/08/19 20:00 01/08/19 21:00 01/08/19 22:00 Temperature 98.5 F Pulse Rate 58 L 64 56 L Respiratory Rate 16 Blood Pressure 125/61 Pulse Oximetry 97 01/08/19 23:00 01/09/19 00:00 01/09/19 01:00 Temperature 97.8 F Pulse Rate 79 58 L 50 L Respiratory Rate 16 Blood Pressure 109/49 L Pulse Oximetry 97 01/09/19 02:00 01/09/19 03:00 01/09/19 03:27 Temperature 98.2 F Pulse Rate 56 L 56 L 55 L Respiratory Rate 16 Blood Pressure 111/53 L Pulse Oximetry 99 01/09/19 04:00 01/09/19 05:00 01/09/19 06:00 Temperature Pulse Rate 58 L 54 L 58 L Respiratory Rate Blood Pressure Pulse Oximetry 01/09/19 07:00 01/09/19 07:47 01/09/19 08:00 Temperature 97.8 F Pulse Rate 56 L 66 Respiratory Rate 16 Blood Pressure 94/41 L Pulse Oximetry 97 95 01/09/19 09:00 01/09/19 10:16 01/09/19 13:00 Temperature Pulse Rate 64 42 L 49 L Respiratory Rate Blood Pressure Pulse Oximetry 01/09/19 13:24 01/09/19 14:00 Temperature 97.7 F Pulse Rate 50 L 52 L Respiratory Rate 16 Blood Pressure 89/42 L Pulse Oximetry 99 Intake & Output 01/08/19 01/09/19 01/09/19 18:59 06:59 18:59 Intake Total 1030 / 1030 240 / 240 Output Total / 0 / 0 1500 / 1500 Balance 1005 / 1005 240 / 240 -1500 / -1500 Weight 74.5 kg 79 kg Intake: Oral 480 / 480 240 / 240 Anesthesia Amount 550 / 550 Output: Urine 0 / 0 0 / 0 Hemodialysis Amount 1500 / 1500 Estimated Blood Loss Other: Weight On Admission 74.5 kg <Naman Jacobo - Last Filed: 01/09/19 14:31> Assessment and Plan - Assessment (1) ESRD (end stage renal disease) on dialysis Code(s): N18.6 - End stage renal disease; Z99.2 - Dependence on renal dialysis Status: Acute Plan: Patient gets dialysis TTS in [place]. s/p right upper extremity access revision with Dr. Lynne. Avoid BP measurements or IV's in right arm due to AVF. Patient was seen on dialysis, 2K, 300 ml/min, UF goal 1.5 L. Patient to be discharged today after dialysis. (2) Hypertension Code(s): I10 - Essential (primary) hypertension Status: Acute Plan: Patient on Amlodipine and Metoprolol. Monitor BP. <Pollo Berger - Last Filed: 01/09/19 12:25> - Assessment (1) ESRD (end stage renal disease) on dialysis Code(s): N18.6 - End stage renal disease; Z99.2 - Dependence on renal dialysis Status: Acute (2) Hypertension Code(s): I10 - Essential (primary) hypertension Status: Acute - Attending Attestation patient was seen and examined. Agree with above assessment and plan. <Naman Jacobo - Last Filed: 01/09/19 14:31>
[2019-01-09 16:19] VITALS: BP 90/39; RESP 18; TEMP 98.4; O2SAT 100
[2019-01-09 17:07] VITALS: PULSE 61
== END 2019-01-09 17:49 | disposition home or self-care (01) ==
LOC: HCVO 05:53 → HSDI 05:53 → HCPC 11:35
PROVIDERS: ADMIT Surgery; ATTEND Surgery
CPT/HCPCS: 76937; 80048; 80074; 85025; 85027; 85610; 85730; 86850; 86900; 86901; 90774; 90775; 90935; 96372; 96374; 96375; G0257; G0378; J0886; J1580; J1644; J2370; J2704; J2720; J3010; J3370; J7040; J7050; Q4055; Q4081